=== PATIENT | female | born 1990 | race Caucasian/White ===

== ENCOUNTER → 2020-06-29 14:48 | Outpatient (CLI) | payer OTHER, BC, SELFPAY ==
--- NOTE | ~2020-06-29 | US_ITS ---
EXAMINATION: US OB transvaginal DATE: 06/29/2020 15:13 INDICATION: Gestational dating TECHNIQUE: Real-time transvaginal obstetric ultrasound. FINDINGS: No prior studies for comparison. The uterus measures 8.2 x 6.4 x 7.8 cm. There is an intrauterine gestational sac, with pole marizol ntified. The crown rump length measures 2.49 cm, which correlates with a estimated gestational age o f 9 weeks 1 day. There is a small subchorionic hemorrhage measuring 1.1 x 0.6 x 0.4 cm heart to devyn are identified measuring 188 BPM. The ovaries are within normal limits with normal Doppler signal . IMPRESSION: 1. SL IUP with an EGA of 9 weeks, 1 days (EDC by current ultrasound of 01/31/2021). 2: Small subchorionic hemorrhage. Reviewed, dictated and finalized at location A. IMPRESSION: 1. SL IUP with an EGA of 9 weeks, 1 days (EDC by current ultrasound of 02/01/20). 2: Small subchorionic hemorrhage.
== END ==
PROVIDERS: Visit Provider Obstetrics & Gynecology
DX: O46.91 Antepartum hemorrhage, unspecified, first trimester (principal); Z3A.09 9 weeks gestation of pregnancy
CPT/HCPCS: 76817

== ENCOUNTER → 2020-07-27 11:19 | Outpatient (CLI) | payer OTHER, BC, SELFPAY ==
--- NOTE | ~2020-07-27 | US_ITS ---
US OB limited 07/27/2020 11:43 Indication: Subchorionic hemorrhage Procedure: Limited obstetrical ultrasound Comparison: 06/29/2020 Findings: There is a single living intrauterine with heart rate of 163 BPM. No eviden ce for subchorionic hemorrhage on the current study. Impression: 1: Single living intrauterine . 2: Interval resolution of subchorionic hemorrhage. Reviewed, dictated and finalized at location A. Impression: 1: Single living intrauterine . 2: Interval resolution of subchorionic hemorrhage.
== END ==
PROVIDERS: Visit Provider Obstetrics & Gynecology
DX: O36.8910 Maternal care for other specified fetal problems, first trimester, not applicable or unspecified (principal); Z3A.00 Weeks of gestation of pregnancy not specified
CPT/HCPCS: 76815

== ENCOUNTER 2021-01-23 23:38 | Inpatient (IN) | payer OTHER, BC, SELFPAY ==
--- NOTE | 2021-01-23 23:38 | LDADM ---
This patient, Eileen Bernabe, was admitted to Labor/Delivery/Recovery 105 on 01/23/21 at 23:38. Plans for labor, pain management and were discussed with patient. Patient/family oriented to hospital policies and general routines including ID bracelet, bed and alarms, visiting hours, pain management, procedures, bathroom and other care routines, personal items, smoking policy, room service/diet and guest tray routines, security routines, and visiting hours. Patient/Family are encouraged to report perceived risks to care and to ask questions if they do not understand what they are told or what they should do. See OBIX for further documentation.
[2021-01-24] VITALS (92 sets, daily range): BP systolic 110–146; BP diastolic 49–127; PULSE 70–154; RESP 16–18; TEMP 36.6–38.1; O2SAT 96–100; BMI 29.3
[2021-01-24] MEDS: LACTATED RINGERS 1,000 ML 125 ML IV CONT ×2 (00:14→01:24)
[2021-01-24] MEDS: AMPICILLIN 2 GM/NS 100 ML 2 GM/100 ML BAG IVPB (00:14)
[2021-01-24 00:19] LABS: Basophils Percent Auto 0.2 % (0.2-1.2); Eosinophils Absolute Auto 0.2 K/mm3 (0-0.3); Hematocrit 34.7 % (37.0-47.0); Hemoglobin 11.8 g/dL (12.0-15.0); Immature Granulocyte Absolute 0.08 K/mm3 (0.00-0.031); Immature Granulocyte Percent A 0.6 % (0-0.5); Lymphocytes Absolute Auto 2.74 K/mm3 (0.9-3.2); Lymphocytes Percent Auto 18.9 % (18.3-44.2); Mean Corpuscular Hemoglobin 32.6 pg (26-34); Mean Corpuscular Volume 95.9 fl (80-100); Mean Platelet Volume 12.6 fl (7.4-10.4); Monocytes Absolute Auto 1.4 K/mm3 (0.1-0.6); Monocytes Percent Auto 9.3 % (2.6-8.5); Neutrophils Absolute Auto 10.1 K/mm3 (1.3-6.7); Platelet Count Result 174 k/mm3 (150-375); Red Blood Count 3.62 M/mm3 (4.2-5.4); Red Cell Distribution Width 13.8 % (11.5-14.5); White Blood Count 14.5 K/mm3 (4.5-10.0)
--- NOTE | 2021-01-24 00:28 | WPDANESEPP ---
Anes - Eval Pre Procedure Procedure: labor epidural Date/Time: 01/24/21 00:28 Surgeon: jamie Pre Op Diagnosis: Leaking Patient Data Age: 31 Gender: F Height: Weight: Last Vital Signs Pulse 100 01/24/21 00:16 BP 139/84 01/24/21 00:16 Allergies Allergy/AdvReac Type Severity Reaction Status Date / Time No Known Allergies Allergy Unverified 09/16/18 15:28 Home Medications Medication Instructions Recorded Confirmed Type PNV cmb#95-ferrous fumarate-FA 1 tablet PO DAILY 01/18/21 01/18/21 History [] acyclovir 400 mg PO TID 01/18/21 01/18/21 History ferrous sulfate 300 mg PO DAILY 01/18/21 01/18/21 History Laboratory Tests 01/24/21 01/24/21 00:11 00:11 WBC 14.5 K/mm3 H K/mm3 (4.5-10.0) RBC 3.62 M/mm3 L M/mm3 (4.2-5.4) Hgb 11.8 g/dL L g/dL (12.0-15.0) Hct 34.7 % L % (37.0-47.0) MCV 95.9 fl fl (80-100) MCH 32.6 pg pg (26-34) MCHC 34.0 g/dl g/dl (32-36) RDW 13.8 % % (11.5-14.5) Plt Count 174 k/mm3 k/mm3 (150-375) MPV 12.6 fl H fl (7.4-10.4) Immature Gran % (Auto) 0.6 % H % (0-0.5) Neut % (Auto) 70.0 % % (45.5-73.1) Lymph % (Auto) 18.9 % % (18.3-44.2) Granite % (Auto) 9.3 % H % (2.6-8.5) Eos % (Auto) 1.0 % % (0-4.4) Baso % (Auto) 0.2 % % (0.2-1.2) Lymph # (Auto) 2.74 K/mm3 K/mm3 (0.9-3.2) Granite # (Auto) 1.4 K/mm3 H K/mm3 (0.1-0.6) Eos # (Auto) 0.2 K/mm3 K/mm3 (0-0.3) Baso # (Auto) 0.0 K/mm3 K/mm3 (0.0-0.1) Abs Immat Gran (auto) 0.08 K/mm3 H K/mm3 (0.00-0.031) Absolute Neuts (auto) 10.1 K/mm3 H K/mm3 (1.3-6.7) Absolute Nucleated RBC 0.0 K/mm3 K/mm3 (0.0-0.012) Nucleated RBC % 0.0 % % (0.0-0.2) RPR Pending Patient hx anesthesia problems: none Family hx anesthesia problems: none [facility] Family History Family History (Updated 01/18/21 @ 13:43 by Gerson Lyman RN) Other No pertinent family history Social History Social History Smoking status: Never smoker Alcohol intake: never Substance use: never Gender identity (if verbalized by the patient): Female Spiritual care concerns: No Exam Day of Procedure 01/24/21 00:28
[2021-01-24] MEDS: OXYTOCIN 30 UNITS/NS 500 ML 30 UNITS/500 ML BAG 999 UNITS IV CONT (03:25)
--- NOTE | 2021-01-24 03:40 | P.PCNOB_ITS ---
OB - Delivery Note Procedure Delivery date: 01/24/21 Procedure: Intrapartal events: None Induction method: none Delivery monitor: external FHT and external uterine Route of delivery: Laceration Description: Perineal - 2nd Degree Delivery repair: vicryl Specimen: Yes Quantitative Blood Loss (ml): 220 Anesthesia type: Epidural Disposition: floor [place] Baby Date of : 01/24/21 Time of : 03:19 Weeks of gestation at delivery: 39 Infant gender: Male Weight (pounds): 7 Weight (ounces): 13 presentation: vertex position: Left Occiput Anterior Placenta delivery description: Spontaneous cord vessel description: 3 Vessels and Clamped/Cut score one minute: 8 score five minutes: 9
--- NOTE | 2021-01-24 03:49 | WPDOBADMIT ---
Obstetrics - Admit Note Admission Note: complete and pushing record reviewed. No pertinent additions to the history and/or any subsequent changes in the physical findings that are not consistent with the expected course of the were found. Additions to the history and/or subsequent changes in the physical findings follow. None.
[2021-01-24] MEDS: AMPICILLIN 1 GM/NS 50 ML 1 GM/50 ML BAG IVPB (03:57)
[2021-01-24] MEDS: OXYTOCIN 30 UNITS/NS 500 ML 30 UNITS/500 ML BAG 125 UNITS IV CONT (03:58)
[2021-01-24] MEDS: BENZOCAINE 20% AER SPR (*SP) 56 GM CAN 1 SPRAY TOPICAL (05:35)
[2021-01-24] MEDS: WITCH HAZEL 40 PADS 1 PAD TOPICAL (05:35)
--- NOTE | 2021-01-24 06:42 | OBPPTRN ---
Addendum entered by Vreito Hubbard RN 01/24/21 06:53: Admission 01/24/21 @ 0542. Original Note: Patient transferred to post room #284 via wheelchair. Support person present. Oriented to unit, room, information board, rooming in, admission packet and security measures. Patient verbalizes understanding.
[2021-01-24 07:09] LABS: Rapid Plasma Reagin Non-Reactive (NonReactive)
--- NOTE | 2021-01-24 07:55 | PC.NURSE ---
Mother called out for assist with feeding. Consulted with patient, mother reports fed well first feeding. Mother reports is sleepy and not waking. Reviewed infant feeding cues, frequencies, duration of feedings, feeding elimination flow sheet, and signs of adequate intake. Demonstrated stimulation techniques to wake for feeding. Infant easily awoken with feeding cues noted. Assisted with infant to breast. Reviewed positioning/alignment in football, holding breast in C hold and guided asymmetrical latch on. was able to latch within a few attempts. nursed eagerly, with steady draws and frequent swallowing noted. Latch was shallow. Reviewed signs of a correct latch, effective nursing and suck swallow ratio. Infant was able to maintain latch. Mother reported tenderness at times, had slipped to shallow latch. Demonstrated how to adjust latch more deeply while feeding. Mother quickly reports she can feel infant is latched more deeply and has minimal tenderness. Suggested to stimulate infant while feeding to keep awake and nursing effectively for increased stimulation and increased intake. Instructed mother to call out for RN assistance if she is unable to latch infant for feeding or she has discomfort with nursing
--- NOTE | 2021-01-24 08:30 | PC.NURSE ---
PT introductions made and plan of care discussed per post , pain management, breast feeding, daily care activities. PT and spouse both received instructions and there were no barriers to learning at this time. One to One discussion with an opportunity to ask and have questions answered. PT verbalized understanding of such care.
[2021-01-24] MEDS: LANOLIN (LANSINOH) 7.5 GM CREAM 1 APPLIC TOPICAL (10:30)
[2021-01-24] MEDS: IBUPROFEN SUSPENSION 200 MG/10 ML UDC 600 MG PO ×2 (10:31→16:54)
[2021-01-24] MEDS: DOCUSATE SODIUM LIQ 100 MG/10 ML UDC PO ×2 (10:35→16:53)
[2021-01-24] MEDS: MULTIVITS W-FE,MIN CHEWABLE TABLET 1 TABLET PO (10:35)
[2021-01-24] MEDS: ACETAMINOPHEN ELIXIR 325 MG/10.15 ML UDC 650 MG PO ×2 (10:36→16:53)
--- NOTE | 2021-01-24 11:20 | PC.NURSE ---
Mother called out for assist with feeding. Mother reports infant sleepy and not waking. Suggested gentle stimulation, unwrapping and skin to skin. Demonstrated stimulation techniques to wake for feeding. Several minutes before infant awake and feeding cues noted. Assisted with infant to breast. Reviewed positioning/alignment in football, holding breast in C hold and guided asymmetrical latch on. Infant was able to latch within a few attempts. Infant nursed eagerly, with steady draws and frequent swallowing noted. Latch was shallow. Reviewed signs of a correct latch, effective nursing and suck swallow ratio. Infant was able to maintain latch. Mother reported tenderness at times, infant had slipped to shallow latch. Demonstrated how to adjust latch more deeply while feeding. Mother quickly reports she can feel infant is latched more deeply and has minimal tenderness. Suggested to stimulate infant while feeding to keep infant awake and nursing effectively for increased stimulation and increased intake. Instructed mother to call out for RN assistance if she is unable to latch for feeding or she has discomfort with nursing
[2021-01-25] MEDS: ACETAMINOPHEN ELIXIR 325 MG/10.15 ML UDC 650 MG PO ×3 (03:00→21:00)
[2021-01-25] MEDS: IBUPROFEN SUSPENSION 200 MG/10 ML UDC 600 MG PO ×3 (03:00→20:59)
[2021-01-25 03:22] LABS: Hematocrit 31.1 % (37.0-47.0); Hemoglobin 10.5 g/dL (12.0-15.0)
[2021-01-25 07:35] VITALS: BP 107/67; PULSE 78; RESP 18; TEMP 36.4; O2SAT 96
--- NOTE | 2021-01-25 07:39 | WPDANLDPN2 ---
Anes-Prog Note L&D Date/Time: 01/25/21 07:39 Comfortable throughout: labor and delivery Neuraxial method: epidural Epidural/Spinal procedure site: clean & non-tender Neuro status: Neuro function grossly intact. Cardiovascular status: normal Respiratory status: normal Airway patency: baseline Mental status: baseline Post-Op hydration status: normal Vital Signs: Last Vital Signs Temp 36.7 C 01/24/21 23:00 Pulse 70 01/24/21 23:00 Resp 16 01/24/21 23:00 BP 113/77 01/24/21 23:00 Pulse Ox 96 01/24/21 16:30 Pain score (VAS): 0 I/O: Intake & Output 01/24/21 01/24/21 01/25/21 15:59 23:59 07:59 Intake Total 500 Balance 500 Post-procedural complaints: none Patient feedback: Patient satisfied with anesthetic care.
[2021-01-25] MEDS: DOCUSATE SODIUM LIQ 100 MG/10 ML UDC PO ×2 (08:56→20:59)
[2021-01-25] MEDS: WITCH HAZEL 40 PADS 1 PAD TOPICAL (08:56)
[2021-01-25] MEDS: MULTIVITS W-FE,MIN CHEWABLE TABLET 1 TABLET PO (08:56)
--- NOTE | 2021-01-25 11:53 | PM.OBPNVD ---
OB - PN: Subj Subjective Date/time seen: 01/25/21 11:53 doing well no complaints nursing baby bleeding decreased OB - PN: Obj Data Labs CBC & Chem 7: 01/25/21 03:05 Labs: Laboratory Results - last 24 hr 01/25/21 03:05 Hgb 10.5 L Hct 31.1 L OB - PN A/P Assessment and Plan (1) (normal spontaneous vaginal delivery): Code(s): O80 - Encounter for full-term uncomplicated delivery Status: Acute Assessment and Plan: continue with pp care. Time Spent With Patient Time: Total time spent is greater than 50% in coordination of care (as documented) at patient's floor/unit and/or counseling patient: Exam Narrative: Exam Narrative: ff below umbilicus
--- NOTE | 2021-01-25 14:45 | PC.NURSE ---
Mother called out for assist with waking to feed. Mother states infant has been easily awoken and is now sleepy after circumcision. Assured mother this is normal. Mother reports tenderness with feedings, small bruise noted to areola under nipple. Demonstrated stimulation techniques to wake for feeding, unwrapping, gentle stimulation to back and feed. Infant easily awoken with feeding cues noted. Reviewed positioning/alignment in cross cradle, holding breast in U hold and guided asymmetrical latch on. was able to latch within a few attempts. Infant tends to roll bottom lip in. Discussed how this may cause tenderness with feeding and possible bruise under nipple. nursed eagerly, with steady draws and frequent swallowing noted. Reviewed signs of a correct latch, effective nursing and suck swallow ratio. Infant was able to maintain latch. Mother reported tenderness after a few minutes, had slipped to shallow latch. Demonstrated how to adjust latch more deeply while feeding. Mother quickly reports she can feel is latched more deeply and has minimal tenderness. Suggested to stimulate while feeding to keep awake and nursing effectively for increased stimulation and increased intake. Requested mother call out for assist if she has difficulties to wake or discomfort with feeding. Mother is feeding as required and waking infant to feed if needed. Infant has had at least 8 effective feedings in the past 24 hours, and is currently meeting outcomes for weight, output, jaundice and feeding frequencies. Mother states she feels confident to continue effective at home. Reviewed transition to breast milk, signs of adequate intake, and engorgement/relief. Instructed to call ICP if intake/output less than required. Reviewed regular medications mother is taking. Information provided per [facility]. Reviewed community resources on the [facility] website and in the Mom/Baby guide. Information on outpatient services provided. Mother has no further questions at this time.
[2021-01-25 19:40] VITALS: BP 117/74; PULSE 78; RESP 16; TEMP 36.4; O2SAT 97
--- NOTE | 2021-01-25 19:40 | PC.NURSE ---
Patient viewed the discharge video Mother & Baby Care, The First Two Weeks online. Patient was given the opportunity and encouraged to ask questions. Patient verbalized understanding of information shared and has been given the mother/baby guide for home reference.
[2021-01-26 08:00] VITALS: BP 120/72; PULSE 93; RESP 16; TEMP 36.9; O2SAT 98
--- NOTE | 2021-01-26 08:00 | PC.NURSE ---
Pt introductions made and plan of care discussed per post , pain management, breast feeding, daily care activities and pending discharge to home. PT verbalized understanding fo such care.
[2021-01-26] MEDS: ACETAMINOPHEN ELIXIR 325 MG/10.15 ML UDC 650 MG PO (08:16)
[2021-01-26] MEDS: IBUPROFEN SUSPENSION 200 MG/10 ML UDC 600 MG PO (08:17)
[2021-01-26] MEDS: MULTIVITS W-FE,MIN CHEWABLE TABLET 1 TABLET PO (08:20)
--- NOTE | 2021-01-26 10:00 | PC.NURSE ---
Patient viewed the discharge video Mother & Baby Care, The First Two Weeks . Patient was given the opportunity and encouraged to ask questions. Patient verbalized understanding of information shared and has been given the mother/baby guide for home reference.
--- NOTE | 2021-01-26 10:42 | PM.OBPNVD ---
OB - PN: Subj Subjective Date/time seen: 01/26/21 10:42 Patient comments: no complaints and pain well controlled baby status: doing well OB - PN: Obj Data Labs CBC & Chem 7: 01/25/21 03:05 OB - PN A/P Plan day: 2 Plan: routine care, discharge home, follow up 6 weeks and other (plans micronor start at week 3) Time Spent With Patient Time: Total time spent is greater than 50% in coordination of care (as documented) at patient's floor/unit and/or counseling patient: Exam : Bimanual exam- vagina & uterus: other (Uterus firm, nt @U)
--- NOTE | 2021-01-26 12:40 | PC.NURSE ---
PT and spouse received discharge instructions per protocol via mom baby care guide book and one to one discussion. No barriers to learning identified. PT and spouse both verbalized understanding of such care.follow up appts confirmed
--- NOTE | 2021-01-26 13:10 | PC.NURSE ---
PT discharged to home ambulatory accompanied by both spouse and infant to waiting car. Follow up appts confirmed
[2021-01-28 07:59] VITALS: BP 123/82; PULSE 89; RESP 20; TEMP 37.1; O2SAT 99
--- NOTE | 2021-02-11 02:07 | PM.OBDSVD ---
DS: Admitting Diagnosis Admitting Diagnosis Admitting Diagnosis: Labor DS: Discharge Diagnosis Discharge Diagnosis (1) (normal spontaneous vaginal delivery): Code(s): O80 - Encounter for full-term uncomplicated delivery Status: Acute OB - DS: Summary OB Procedures : Ultrasound OB Procedures Intrapartum: Spontaneous Vag Delivery OB Procedures: : None Peripartum Data Infant Delivery Method: Natural Vaginal Laceration Description: Perineal - 2nd Degree complications: none Time Spent with Patient Time attestation: Total time spent providing and/or coordinating discharge services: DS: Data Data Completed and Pending Completed studies during hospitalization: Pending at discharge 01/24/21 03:30 Surgical [PTH] Routine Discharge Plan Discharge Attending physician on discharge: Toi Crawford Discharging Clinician: Toi Crawford Patient Disposition: Home, Self-Care Activity: may shower Diet: regular Discharge Instructions: Education: Mom and Baby Guide Given to: Mother Follow-Up: Call your delivering provider's office for an appointment to be seen in: 4 Weeks Mom and baby should come to the [facility] for the follow-up appointment. Appointment Date/Time: January 28, 2021 at 8:00 am What to expect at your follow-up visit: Blood Pressure Check Call [phone] if you are unable to keep your appointment time. BREAST CARE: * Wear a snug supportive bra. * For engorgement discomfort: Breast Feeding: * Apply warm moist washcloths * Express milk as needed to relieve engorgement * Wear loose clothing Bottle Feeding: * May apply ice packs * For sore nipples: * Identify correct latch-on * Apply warm moist washcloths before and after nursing * Air dry nipples after nursing * May apply Lansinoh cream to nipples PERINEAL CARE: * Until bleeding stops, use your srinivas bottle after urinating * Change your pad frequently throughout the day * You may take sitz baths several times a day (fill your bathtub with warm water and soak for 20 minutes.) Do NOT bathe in the water * No tub baths until seen by your physician - You may shower ACTIVITY: * Rest as much as possible. * Do not exercise or lift anything heavier than your baby (such as laundry or other children.) * Avoid stairs or driving as much as possible. * Do not put anything into the vagina. No douching, tampons, or sexual activity until seen by physician. NOTIFY PHYSICIAN IF YOU HAVE ANY QUESTIONS OR IF ANY OF THE FOLLOWING SYMPTOMS OCCUR: * If your perineum becomes red, swollen, or more painful than what you have experienced in the hospital. * If your vaginal bleeding becomes foul smelling. * If your vaginal bleeding becomes more heavy than a period or if your bleeding changes from pink to bright red. However, you may pass an occasional walnut-sized clot once or twice for the first week . * If you experience a sharp, shooting pain in you calves. * If you discover a hard, reddened area on your breast or if you experience flu-like symptoms. * If you have a fever of 100.4 or greater DIET: * Eat regular, well-balanced meals. * Drink plenty of fluids daily. If , drink to thirst. Patient Instructions: Antibiotic Form Stand Alone Forms: General Discharge Information Follow-up/Referrals: Toi Crawford MD [Physician] - Discharge Medications: New norethindrone (contraceptive) 0.35 mg tablet 0.35 mg PO DAILY Qty: 84 RF: 3 Continued PNV cmb#95-ferrous fumarate-FA [] 28 mg iron- 800 mcg Tablet 1 tablet PO DAILY RF: 0 Changed ferrous sulfate 325 mg (65 mg iron) Tablet 325 mg PO DAILY Qty: 0 RF: 0 Discontinued acyclovir 200 mg/5 mL (5 mL) Suspension 400 mg PO BID RF: 0 Date of admission: 01/23/21 23:38 Primary Ca
== END 2021-01-26 13:10 | disposition home or self-care (01) | DRG 807 ==
LOC: ANHLDR 01-24 03:50 → ANHOB2 01-24 13:39 → ANHLDR 01-28 17:15 → ANHOB2 01-28 17:15
PROVIDERS: Admitting Provider Obstetrics & Gynecology; PCP Family Medicine; Visit Provider Obstetrics & Gynecology Gynecology
DX: O99.824 Streptococcus B carrier state complicating childbirth (principal); Z37.0 Single live birth; Z3A.39 39 weeks gestation of pregnancy; O70.1 Second degree perineal laceration during delivery
CPT/HCPCS: 36415; 84112; 85014; 85018; 85025; 86592; 86850; 86900; 86901; 88307; A9270; J0290; J2590; J2795; J7120